=== PATIENT | female | born 1970 | race Caucasian/White ===

== ENCOUNTER → 2020-08-23 | Outpatient (CLI) | payer OTHER | LOC: KOH-I 15:57 | DX: S82.899A Other fracture of unspecified lower leg, initial encounter for closed fracture (principal) | CPT/HCPCS: 73610; 73630 ==

== ENCOUNTER → 2020-09-27 | Outpatient (CLI) | payer OTHER | LOC: KOH-I 08:48 | DX: S93.492A Sprain of other ligament of left ankle, initial encounter (principal); M77.32 Calcaneal spur, left foot | CPT/HCPCS: 73721 ==